=== PATIENT | female | born 1980 | race Caucasian/White ===

== ENCOUNTER 2021-03-22 09:33 | Outpatient (CLI) | payer OTHER, SELFPAY ==
--- NOTE | ~2021-03-22 | US_ITS ---
EXAMINATION: US right upper quadrant EXAM DATE: 03/22/2021 10:10 INDICATION: RUQ pain . TECHNIQUE: Multiple grayscale and Doppler images of the abdomen right upper quadrant were obtained (jessi y a technologist who performed the scan) and subsequently reviewed. There is no prior study for iveth petit. FINDINGS: The pancreatic head and body are normal in appearance. The pancreatic tail is not visualized. The l iver has normal echogenicity and contour. There are no focal liver lesions identified. There is no evidence of intrahepatic biliary duct dilation. Portal venous flow was seen in the hepatopedal, nor mal direction and has normal Doppler waveform. No right-sided hydronephrosis. Common bile duct measures 2 mm, which is normal. The gallbladder fossa is unremarkable. IMPRESSION: 1. Unremarkable abdominal ultrasound exam. Reviewed, dictated and finalized at location B.
== END 2021-03-22 09:34 ==
DX: R10.11 Right upper quadrant pain (principal)
CPT/HCPCS: 76705